=== PATIENT | male | born 1945 | race Caucasian/White ===

== ENCOUNTER 2019-07-30 14:36 | Emergency (ER) | payer MEDICARE, MEDICAID ==
[~2019-07-30] VITALS: Ht 180.3 cm; Wt 95.5 kg
[2019-07-30 14:37] VITALS: BP 177/97
[2019-07-30] MEDS ORDERED: GUAI120L55 PO (16:12)
[2019-07-30] MEDS ORDERED: AZIT-31 PO (16:12)
== END 2019-07-30 16:15 | disposition home or self-care (01) ==
LOC: ER 14:36
DX: J20.9 Acute bronchitis, unspecified (principal); R53.83 Other fatigue; J45.909 Unspecified asthma, uncomplicated; M19.90 Unspecified osteoarthritis, unspecified site; F12.90 Cannabis use, unspecified, uncomplicated; Z79.899 Other long term (current) drug therapy; Z87.440 Personal history of urinary (tract) infections
CPT/HCPCS: 99283

== ENCOUNTER 2021-07-30 12:53 | Emergency (ER) | payer MEDICARE, MEDICAID ==
[~2021-07-30] VITALS: Ht 177.8 cm; Wt 84.1 kg
[~2021-07-30 12:53] MED LIST: GUAI120L55 PO
[2021-07-30 13:20] VITALS: BP 199/107
== END 2021-07-30 15:37 | disposition home or self-care (01) ==
LOC: ER 12:57
DX: M25.562 Pain in left knee (principal); G89.29 Other chronic pain; J45.909 Unspecified asthma, uncomplicated; M19.90 Unspecified osteoarthritis, unspecified site; F12.90 Cannabis use, unspecified, uncomplicated; Z87.440 Personal history of urinary (tract) infections; Z98.890 Other specified postprocedural states; Z72.89 Other problems related to lifestyle; Z79.899 Other long term (current) drug therapy
CPT/HCPCS: 73564; 99283

== ENCOUNTER 2024-11-06 15:58 | Emergency (ER) | payer MEDICARE, MEDICAID ==
[~2024-11-06] VITALS: Ht 177.8 cm; Wt 88.6 kg
--- NOTE | 2024-11-06 16:09 | Physician Documentation ---
HPI ~ General Chief Complaint: Facial Pain Stated Complaint: NOSE/MOUTH INFECTION Time Seen by MD: 18:12 Primary Medical Doctor: ANDREA History of Present Illness HPI Comment 79-year-old male who presents due to concerns for dental infection. He reports numerous broken and infected teeth and an abscess below a tooth to the left lower jaw. He does also have right upper facial swelling. He denies chills or fevers, nausea or vomiting, chest pain or shortness of breath. Medication Reconciliation Allergies: Coded Allergies: No Known Allergies (Unverified , 11/06/24) Scheduled Amox Tr/Potassium Clavulanate (Augmentin 875-125 Tablet), 1 TAB PO Q12H Scheduled PRN Guaifenesin/Codeine Phosphate (Codeine-Guaifen 10-100 mg/5 ml), 10-May ML PO Q6H PRN for cough Hydrocodone Bit/Acetaminophen 5/325 MG (Mammoth 5/325 MG), 1 TAB PO Q6H PRN for pain Past Medical History Past Medical History: Asthma, UTI, Arthritis, Bustits Past Surgical History: orthopedic surgeries Alcohol Use: Sober Drug Use: marijuana Lives In: Home Review of Systems ROS As stated above in the HPI, otherwise all systems are reviewed and negative. Physical Exam Vital Signs: Temperature: 97.4, Source: Temporal, Heart Rate: 88, Respiratory Rate: 16, BP: 166/114, Pulse Oximetry: 99, Weight: 88.640 Oxygen Flow Rate: 0 Physical Exam General: Alert, no apparent distress. HEENT: PERRL, EOMI, no injection, moist mucous membranes. Globally poor dentition with small abscess at base of broken tooth left lower jaw. Uvula midline. No trismus. Neck: Full range of motion. Respiratory: Lungs clear, no respiratory distress. Chest: No accessory muscle use. Cardiovascular: Regular rate and rhythm, no murmurs. Gastrointestinal: Soft, nontender, nondistended. Bowels sounds present. Extremities: Shuffling stiff gait. Walks with aid of cane. Neurologic: Oriented x4. Psychiatric: Normal mood and affect. Skin: Normal color, warm and dry. No edema, no ecchymosis. Progress Progress Note 1835: Entered room to drain dental abscess. Patient had been placing piero-medina to site and the abscess drained without my intervention. Results/Orders Results/Orders Orders - ANAIS CHAVEZ NP Laceration/I&D Tray Set Up (11/06/24 16:12) Completed Orders - ANAIS CHAVEZ NP Lidocaine 1% W/Epi 1:100,000 (Xylocaine (11/06/24 16:15) Vital Signs 11/06/24 16:06 Temp 97.4 Pulse 88 Resp 16 B/P (MAP) 166/114 Pulse Ox 99 O2 Flow Rate 0 Medical Decision Making Differential Dx:Considerations: Include: Alveolar fracture, Alveolar osteitis, ANUG, Facial Cellulitis, Periapical abscess, Peridontal abscess, Post-extraction bleeding, Pulpitis, Tooth avulsion, Tooth eruption, Tooth Fracture, Trigeminal neuralgia, Tooth subluxation Departure Time of Disposition: 18:13 Impression: Primary Impression: Dental abscess Condition: Stable Discharge Instructions: Abscess, Dental Additional Instructions: See a dentist soon. Use the hydrocodone as needed for pain. Take the prescribed antibiotics. Return if worse. Referrals: NO PRIMARY CARE PROVIDER (PCP) Prescriptions Hydrocodone Bit/Acetaminophen 5/325 MG (Mammoth 5/325 MG) 5 Mg/325 Mg Tablet 1 TAB PO Q6H PRN for pain for 5 Days, #6 TAB Prov: ANAIS CHAVEZ NP 11/06/24 Amox Tr/Potassium Clavulanate (Augmentin 875-125 Tablet) 1 Each Tablet 1 TAB PO Q12H for 7 Days, #14 TAB Prov: ANAIS CHAVEZ NP 11/06/24 Education Educated: Patient Educated regarding: diagnosis, treatment, prognosis, need for follow up Signature Scribe Signature: no scribe Attestation: The note accurately reflects work and decisions made by me.Anais Baker NP 11/06/24 18:35 ANAIS CHAVEZ NP Nov 06, 2024 16:09
[2024-11-06] MEDS ORDERED: AMOX-117 PO (16:13)
[2024-11-06] MEDS ORDERED: LIDOcaine 1% W/epiNEPHrine 1:100,000 20ml vial SQ ONE (16:15)
[2024-11-06] MEDS ORDERED: HYDR-3965 PO (18:15)
[2024-11-06] MEDS: amox tr/potassium clavulanate 875/125mg TAB PO ONE (18:45)
[2024-11-06 18:52] VITALS: BP 162/120; PULSE 96; RESP 18; TEMP 98.6; O2SAT 99
== END 2024-11-06 18:56 | disposition home or self-care (01) ==
LOC: ER 15:58
DX: K04.7 Periapical abscess without sinus (principal); J45.909 Unspecified asthma, uncomplicated; M19.90 Unspecified osteoarthritis, unspecified site; F12.90 Cannabis use, unspecified, uncomplicated
CPT/HCPCS: 99283